=== PATIENT | female | born 2000 | race Caucasian/White ===

== ENCOUNTER → 2022-01-31 | Outpatient (CLI) | payer BC, OTHER | LOC: M WHC 08:01 | PROVIDERS: ATTEND Surgery | DX: N63.10 Unspecified lump in the right breast, unspecified quadrant (principal); R59.9 Enlarged lymph nodes, unspecified | CPT/HCPCS: 76642; 76882; 77066; G0279 ==

== ENCOUNTER 2023-11-12 09:29 | Inpatient (IN) | payer MEDICAID, OTHER ==
[~2023-11-12] VITALS: Ht 160 cm; Wt 70.9 kg
[2023-11-12] VITALS (23 sets, daily range): BP systolic 115–154; BP diastolic 54–102; TEMP 98.4; O2SAT 96–99
[2023-11-12] MEDS ORDERED: PRENTAB9 PO (09:55)
[2023-11-12] MEDS ORDERED: MONT10TA97 PO (09:55)
[2023-11-12] MEDS ORDERED: HOME MED LIST COMPLETE! XX SCH (09:55)
[2023-11-12] MEDS ORDERED: ADV100INH INH ×2 (09:55→10:42)
[2023-11-12 10:30] LABS: HEMATOCRIT 35.6 % (36.0-47.0); HEMOGLOBIN 12.5 g/dl (12.0-15.5); MEAN CORPUSCULAR HEMOGLOBIN 31.8 pg (27.0-33.0); MEAN CORPUSCULAR HGB CONC 35.1 g/dl (32.0-36.5); MEAN CORPUSCULAR VOLUME 90.6 fl (80.0-96.0); PLATELET COUNT, AUTOMATED 194 10^3/uL (150-450); RED BLOOD COUNT 3.93 10^6/uL (4.00-5.40); WHITE BLOOD COUNT 13.4 10^3/uL (4.0-10.0)
[2023-11-12] MEDS ORDERED: TRANEXAMIC ACID INJection 1,000 MG in NS 100 ML IV PRN (10:35)
[2023-11-12] MEDS ORDERED: METHYLERGONOVINE MALEATE 0.2MG/ML 1ML VIAL IM PRN (10:35)
[2023-11-12] MEDS ORDERED: CARBOPROST TROMETHAMINE 250 MCG/ML AMP IM PRN (10:35)
[2023-11-12] MEDS ORDERED: LIDOCAINE 1% MDV 20ML VIAL INFIL PRN (10:35)
[2023-11-12] MEDS ORDERED: OXYTOCIN DRIP 30 UNITS in IV 1 EA IV PRN (10:35)
[2023-11-12] MEDS: LR 1,000 ML IV SCH ×2 (12:05→19:51)
[2023-11-12] MEDS: LR 1,000 ML IV ONE (12:05)
[2023-11-12] MEDS ORDERED: ONDANSETRON 4MG 2ML VIAL IV PRN (12:05)
[2023-11-12] MEDS ORDERED: NALOXONE INJ 0.4MG/1ML VIAL IV PRN ×3 (12:05→15:50)
[2023-11-12] MEDS ORDERED: diphenhydrAMINE 50MG/ML VIAL IV PRN ×2 (12:05→15:50)
[2023-11-12] MEDS ORDERED: ePHEDrine SULFATE 25 MG/5 ML(5MG/ML) SYRINGE IVP PRN (12:05)
[2023-11-12] MEDS ORDERED: EPIDURAL/PCA KEYS XX PRN (12:05)
[2023-11-12] MEDS ORDERED: LR 500 ML IV PRN (12:05)
[2023-11-12] MEDS: FENTANYL/ROPIVACAINE/NACL BAG 100 ML EPIDURAL SCH (12:39)
[2023-11-12] MEDS ORDERED: LR 1,000 ML IV SCH (14:40)
[2023-11-12] MEDS: OXYTOCIN DRIP 30 UNITS in IV 1 EA IV SCH ×2 (14:56→17:34)
[2023-11-12] MEDS: BICITRA 30ML SOLN UDC PO ONE (15:28)
[2023-11-12] MEDS: AZITHROMYCIN INJ 500 MG, VIAL MATE ADAPTER 1 EACH in NS 250 ML IV ONE (15:28)
[2023-11-12] MEDS: ceFAZolin SOD 2 GM in IV 1 EA IV ONE (15:29)
[2023-11-12] MEDS ORDERED: LIDOCAINE 2% W/EPINEPHRINE 20ML VIAL **PRES FREE As Ordered ONE (15:32)
[2023-11-12] MEDS ORDERED: ONDANSETRON 4MG 2ML VIAL As Ordered ONE (15:35)
[2023-11-12] MEDS ORDERED: MORPHINE PRES-FREE INJ 10 MG/10 ML VIAL As Ordered ONE (15:42)
[2023-11-12] MEDS ORDERED: ACETAMINOPHEN 1000MG 100ML IV BAG As Ordered ONE (15:46)
[2023-11-12] MEDS ORDERED: METOCLOPRAMIDE INJ 10MG/2ML VIAL As Ordered ONE (15:48)
[2023-11-12] MEDS ORDERED: METOCLOPRAMIDE INJ 10MG/2ML VIAL IV PRN (15:50)
[2023-11-12] MEDS ORDERED: MEPERIDINE 25 MG/ML 1ML VIAL IV PRN (15:50)
[2023-11-12] MEDS ORDERED: SLF 3 ML SYR IV SCH (15:50)
[2023-11-12] MEDS ORDERED: NALBUPHINE HCL 1MG/0.1ML (100MG/10ML) MDV IV PRN (15:50)
[2023-11-12] MEDS ORDERED: MORPHINE 2 MG/ML 1ML VIAL IV PRN (15:50)
[2023-11-12] MEDS ORDERED: **NOTE PATIENT COMMENT** MISC XX SCH (15:50)
[2023-11-12] MEDS ORDERED: KETOROLAC 60MG 2ML VIAL As Ordered ONE (15:56)
[2023-11-12 16:01] LABS: CORD GAS ABE A -5.7; CORD GAS ABE V -5.7; CORD GAS HCO3 A 24.6 MMOL/L; CORD GAS HCO3 V 22.8 MMOL/L; CORD GAS O2 SAT A 55.3 %; CORD GAS O2 SAT V 62.7 %; CORD GAS PCO2 A 67.7 mmHg; CORD GAS PCO2 V 55.1 mmHg; CORD GAS PH A 7.179 UNITS; CORD GAS PH V 7.235 UNITS; CORD GAS PO2 A 28.3 mmHg; CORD GAS PO2 V 29.5 mmHg; CORD GAS SBC A 18.8 MMOL/L; CORD GAS TCO2 A 26.7 MMOL/L; CORD GAS TCO2 V 24.5 MMOL/L
[2023-11-12] MEDS ORDERED: SIMETHICONE 80MG CHEW TAB PO PRN (16:05)
[2023-11-12] MEDS ORDERED: RHOGAM 300MCG (1500IU) INJ IM SCH (16:05)
[2023-11-12] MEDS ORDERED: oxyCODONE 5MG TAB PO PRN (16:05)
[2023-11-12] MEDS ORDERED: PERCOCET 5MG/325MG TAB PO PRN (16:05)
[2023-11-12] MEDS ORDERED: MIDAZOLAM INJ 2MG/2ML VIAL As Ordered ONE (16:18)
[2023-11-12] MEDS ORDERED: MEPERIDINE 50 MG/ML 1ML VIAL As Ordered ONE (16:18)
[2023-11-12] MEDS ORDERED: OXYTOCIN 30UNITS IN 0.9% NaCl 500ML IV BAG As Ordered ONE (16:21)
[2023-11-12] MEDS: ACETAMINOPHEN TAB 650MG DOSE (2X325MG) PO PRN (19:12)
[2023-11-12] MEDS ORDERED: ALBUTEROL 90 MCG/ACT 8GM HFA INHALER INH PRN (19:15)
[2023-11-12] MEDS: KETOROLAC 30 MG/ML 1ML VIAL IV SCH (22:05)
[2023-11-13 02:00] VITALS: BP 146/67; O2SAT 98
[2023-11-13 06:00] VITALS: BP 121/83; O2SAT 97
[2023-11-13 07:13] LABS: HEMOGLOBIN 10.8 g/dl (12.0-15.5); MEAN CORPUSCULAR HEMOGLOBIN 32.3 pg (27.0-33.0); MEAN CORPUSCULAR HGB CONC 34.8 g/dl (32.0-36.5); MEAN CORPUSCULAR VOLUME 92.8 fl (80.0-96.0); PLATELET COUNT, AUTOMATED 194 10^3/uL (150-450); RED BLOOD COUNT 3.34 10^6/uL (4.00-5.40)
[2023-11-13] MEDS: PRENATAL VITAMINS CHEWABLE TABLET PO SCH (09:40)
[2023-11-13] MEDS ORDERED: HOME MED LIST COMPLETE! XX SCH (09:50)
[2023-11-13 10:00] VITALS: BP 136/72; O2SAT 97
[2023-11-13 14:00] VITALS: BP 118/77; O2SAT 98
[2023-11-13 18:00] VITALS: BP 127/79; O2SAT 99
[2023-11-13] MEDS: IBUPROFEN 800 MG TAB PO SCH (18:11)
[2023-11-13 22:00] VITALS: BP 137/89; O2SAT 97
[2023-11-14 02:00] VITALS: BP 127/84; O2SAT 97
[2023-11-14 06:00] VITALS: BP 136/65; O2SAT 98
[2023-11-14] MEDS: MEASLES,MUMPS,RUBELLA VACCINE INJ (MMR-II) SC.IMMUN ONE (09:00)
[2023-11-14] MEDS ORDERED: OXYC1TAB23 PO (09:03)
[2023-11-14] MEDS ORDERED: IBUP80TA PO (09:03)
[2023-11-14] MEDS ORDERED: COLA100C5 PO (09:09)
[2023-11-14 09:18] LABS: HEMOGLOBIN 10.1 g/dl (12.0-15.5); MEAN CORPUSCULAR HEMOGLOBIN 32.2 pg (27.0-33.0); MEAN CORPUSCULAR HGB CONC 34.8 g/dl (32.0-36.5); MEAN CORPUSCULAR VOLUME 92.4 fl (80.0-96.0); PLATELET COUNT, AUTOMATED 187 10^3/uL (150-450); RED BLOOD COUNT 3.14 10^6/uL (4.00-5.40); WHITE BLOOD COUNT 8.3 10^3/uL (4.0-10.0)
[2023-11-14 10:00] VITALS: BP 123/75; O2SAT 97
== END 2023-11-14 15:40 | disposition home or self-care (01) | DRG 540 ==
LOC: M LDO 09:29 → M LDI 09:33 → M OBS 17:39
PROVIDERS: ADMIT Obstetrics & Gynecology Obstetrics; ATTEND Obstetrics & Gynecology Obstetrics
PROC: 10D00Z1 Extraction of Products of Conception, Low, Open Approach (ICD-10-PCS; principal; 2023-11-12 15:42)
DX: O48.0 Post-term pregnancy (principal); J45.909 Unspecified asthma, uncomplicated; Z3A.40 40 weeks gestation of pregnancy; O99.52 Diseases of the respiratory system complicating childbirth; O62.0 Primary inadequate contractions; Z37.0 Single live birth

== ENCOUNTER → 2025-01-24 | Outpatient (CLI) | payer OTHER ==
[~2025-01-24] MED LIST: ADVA1AER8 INH; COLA100C5 PO; IBUP80TA PO; MONT10TA97 PO; OXYC1TAB23 PO; PRENTAB9 PO
[2025-01-24 14:32] LABS: HEMATOCRIT 36.8 % (36.0-47.0); HEMOGLOBIN 12.6 g/dl (12.0-15.5); MEAN CORPUSCULAR HEMOGLOBIN 30.5 pg (27.0-33.0); MEAN CORPUSCULAR HGB CONC 34.2 g/dl (32.0-36.5); MEAN CORPUSCULAR VOLUME 89.1 fl (80.0-96.0); PLATELET COUNT, AUTOMATED 239 10^3/uL (150-450); RED BLOOD COUNT 4.13 10^6/uL (4.00-5.40); WHITE BLOOD COUNT 7.6 10^3/uL (4.0-10.0)
[2025-01-24 15:02] LABS: HIV 1&2 SCREEN NEGATIVE (NEGATIVE)
[2025-01-24 15:10] LABS: HEPATITIS C VIRUS ABY INDEX 0.03 INDEX (<0.8)
[2025-01-24 15:25] LABS: Trichomonas vaginalis (AMP) NOT DETECTED (NEGATIVE)
[2025-01-24 15:48] LABS: GC DNA AMPLIFICATION NEGATIVE (NEGATIVE)
== END ==
LOC: M PLALAB 09:59
PROVIDERS: ATTEND Obstetrics & Gynecology
DX: Z34.92 Encounter for supervision of normal pregnancy, unspecified, second trimester (principal)

== ENCOUNTER → 2025-04-25 | Outpatient (CLI) | payer OTHER ==
[2025-04-25 16:37] LABS: PLATELET COUNT, AUTOMATED 263 10^3/uL (150-450)
[2025-04-25 16:53] LABS: GLUCOSE CHALLENGE TEST 1 HOUR 104 MG/DL (LESS THAN 140)
[2025-04-25 17:28] LABS: HIV 1&2 SCREEN NEGATIVE (NEGATIVE)
[2025-04-25 17:36] LABS: HEPATITIS C VIRUS ABY INDEX < 0.02 INDEX (<0.8)
[2025-04-25 18:15] LABS: Trichomonas vaginalis (AMP) NOT DETECTED (NEGATIVE)
[2025-04-25 18:38] LABS: GC DNA AMPLIFICATION NEGATIVE (NEGATIVE)
== END ==
LOC: M PLALAB 12:05
PROVIDERS: ATTEND Nurse Practitioner Family
DX: Z34.80 Encounter for supervision of other normal pregnancy, unspecified trimester (principal)

== ENCOUNTER → 2025-07-02 | Outpatient (REF) | payer OTHER | LOC: M SFHCWAGY 12:45 | PROVIDERS: ATTEND Advanced Practice Midwife | DX: O34.211 Maternal care for low transverse scar from previous cesarean delivery (principal) ==

== ENCOUNTER 2025-07-25 03:38 | Inpatient (IN) | payer OTHER ==
[2025-07-25] VITALS (12 sets, daily range): BP systolic 111–186; BP diastolic 68–97; TEMP 98.1; O2SAT 93–100
[2025-07-25] MEDS: ceFAZolin SODIUM 2 GM in DEXTROSE 5% (D5W) ADV/MINI-BAG 50 ML IV ONE (03:45)
[2025-07-25] MEDS ORDERED: LR 1,000 ML IV SCH (03:45)
[2025-07-25 04:15] LABS: PLATELET COUNT, AUTOMATED 192 10^3/uL (150-450)
[2025-07-25] MEDS: LACTATED RINGER'S 1000 ML IV STA (04:39)
[2025-07-25] MEDS: BICITRA 30 ML SOLN UDC PO ONE (04:56)
[2025-07-25] MEDS ORDERED: MORPHINE PRES-FREE INJ 10 MG/10 ML VIAL As Ordered ONE (04:56)
[2025-07-25] MEDS ORDERED: ONDANSETRON 4MG 2ML VIAL As Ordered ONE (04:59)
[2025-07-25] MEDS ORDERED: KETOROLAC 30 MG/ML 1 ML VIAL As Ordered ONE (04:59)
[2025-07-25] MEDS ORDERED: dexAMETHasone 4 MG/ML 1 ML VIAL As Ordered ONE (04:59)
[2025-07-25] MEDS ORDERED: ACETAMINOPHEN 1000MG/100ML IV BAG As Ordered ONE (05:02)
[2025-07-25] MEDS ORDERED: OXYTOCIN 30UNITS IN 0.9% NaCl 500ML IV BAG IV ONE (05:02)
[2025-07-25 05:06] LABS: HIV 1&2 SCREEN NEGATIVE (NEGATIVE)
[2025-07-25 05:13] LABS: HEPATITIS C VIRUS ABY INDEX < 0.02 INDEX (<0.8)
[2025-07-25 06:10] LABS: CORD GAS ABE A -4.9; CORD GAS HCO3 A 21.9 MMOL/L; CORD GAS O2 SAT A 17.8 %; CORD GAS PCO2 A 46.6 mmHg; CORD GAS PH A 7.289 UNITS; CORD GAS PO2 A 11.8 mmHg; CORD GAS SBC A 18.6 MMOL/L; CORD GAS TCO2 A 23.3 MMOL/L
[2025-07-25] MEDS ORDERED: PERCOCET 5MG/325MG TAB PO PRN (06:10)
[2025-07-25] MEDS ORDERED: ONDANSETRON 4MG 2ML VIAL IV PRN ×2 (06:10→07:15)
[2025-07-25] MEDS ORDERED: RHOGAM 300MCG (1500IU) INJ IM SCH (06:10)
[2025-07-25 06:14] LABS: CORD GAS ABE V -4.3; CORD GAS HCO3 V 21.1 MMOL/L; CORD GAS O2 SAT V 64.1 %; CORD GAS PCO2 V 39.9 mmHg; CORD GAS PH V 7.341 UNITS; CORD GAS PO2 V 28.0 mmHg; CORD GAS SBC V 20.1 MMOL/L; CORD GAS TCO2 V 22.3 MMOL/L
[2025-07-25] MEDS ORDERED: NALOXONE INJ 0.4 MG/1 ML VIAL IV PRN ×2 (07:15)
[2025-07-25] MEDS ORDERED: MEPERIDINE 25 MG/ML 1 ML VIAL IV PRN (07:15)
[2025-07-25] MEDS ORDERED: diphenhydrAMINE 50 MG/ML VIAL IV PRN (07:15)
[2025-07-25] MEDS ORDERED: HYDROMORPHONE HCL 0.5 MG/0.5 ML SYRINGE IV PRN (07:15)
[2025-07-25] MEDS: SLF 3 ML SYR IV SCH (07:15)
[2025-07-25] MEDS ORDERED: **NOTE PATIENT COMMENT** MISC XX SCH (07:15)
[2025-07-25] MEDS: LR 1,000 ML IV SCH (07:20)
[2025-07-25] MEDS ORDERED: OXYC1TAB23 PO (07:32)
[2025-07-25] MEDS ORDERED: COLA100C5 PO (07:32)
[2025-07-25] MEDS ORDERED: IBUP600T42 PO (07:49)
[2025-07-25] MEDS: KETOROLAC 30 MG/ML 1 ML VIAL IV SCH (11:00)
[2025-07-25] MEDS: PRENATAL VITAMINS CHEWABLE TABLET PO SCH (11:30)
[2025-07-25] MEDS: SIMETHICONE 80MG CHEW TAB PO PRN (17:30)
[2025-07-25] MEDS: DOCUSATE SODIUM 100 MG CAPSULE PO PRN (17:31)
[2025-07-26 02:40] VITALS: BP 125/85; O2SAT 96
[2025-07-26 06:27] VITALS: BP 129/78; O2SAT 98
[2025-07-26] MEDS: IBUPROFEN 800 MG TAB PO SCH (06:44)
[2025-07-26 08:00] LABS: PLATELET COUNT, AUTOMATED 161 10^3/uL (150-450)
[2025-07-26] MEDS ORDERED: MONT10TA97 PO (08:28)
[2025-07-26] MEDS ORDERED: VENTAER INH (08:28)
[2025-07-26] MEDS ORDERED: HOME MED LIST COMPLETE! XX SCH (08:30)
[2025-07-26 10:00] VITALS: BP 131/87; O2SAT 97
[2025-07-26] MEDS: PERCOCET 5MG/325MG TAB PO PRN (12:28)
[2025-07-26 14:00] VITALS: BP 121/79; O2SAT 97
[2025-07-26 18:00] VITALS: BP 123/81; O2SAT 97
[2025-07-26 22:00] VITALS: BP 135/80; O2SAT 98
[2025-07-27 02:00] VITALS: BP 120/73; O2SAT 98
[2025-07-27 06:00] VITALS: BP 121/80; O2SAT 97
[2025-07-27] MEDS: MEASLES,MUMPS,RUBELLA VACCINE INJ (MMR-II) SC.IMMUN ONE (07:25)
== END 2025-07-27 13:30 | disposition home or self-care (01) | DRG 540 ==
LOC: M LDI 03:38 → M OBS 08:03
PROVIDERS: ADMIT Specialist; ATTEND Specialist
PROC: 10D00Z1 Extraction of Products of Conception, Low, Open Approach (ICD-10-PCS; principal; 2025-07-25 05:30)
DX: O34.211 Maternal care for low transverse scar from previous cesarean delivery (principal); Z37.0 Single live birth; Z3A.39 39 weeks gestation of pregnancy